=== PATIENT | male | born 1985 | race Caucasian/White ===

== ENCOUNTER 2018-11-23 09:05 | Emergency (ER) | payer OTHER ==
--- NOTE | 2018-11-23 09:32 | EDM.PDOC ---
ED HPI GENERAL MEDICAL PROBLEM - General Chief Complaint: Laceration Stated Complaint: SHARD OF STEEL THREW LEG Time Seen by Provider: 11/23/18 09:20 - History of Present Illness INITIAL COMMENTS - FREE TEXT/NARRATIVE: HISTORY AND PHYSICAL: History of present illness: The patient is a healthy 33-year-old male who presents from work after he was hitting a piece of metal and a shard of that metal came off and went through his left Leg causing a laceration. The patient says he was in good health with no systemic complaints prior to these events and is up-to-date on his tetanus shot. He says that there was no crush injury or blunt force injury but that a piece of metal came off and went through his pain leg. He says he cannot find a shard of metal and he is concerned that it is retained in his leg. He has no pain at the leg other than at the surface laceration. He has no numbness or tingling in his leg and no other injuries. Review of systems: As per history of present illness and below otherwise all systems reviewed and negative. Past medical history: As per history of present illness and as reviewed below otherwise noncontributory. Surgical history: As per history of present illness and as reviewed below otherwise noncontributory. Social history: No reported history of drug or alcohol abuse. Family history: As per history of present illness and as reviewed below otherwise noncontributory. Physical exam: General: Well-developed well-nourished man who is nontoxic and vital signs are noted by me. Patient ambulated into the ED without distress HEENT: Atraumatic, normocephalic, negative for conjunctival pallor or scleral icterus, mucous membranes moist, throat clear, neck supple, nontender, trachea midline. Lungs: Clear to auscultation, breath sounds equal bilaterally, chest nontender. Heart: S1S2, regular rate and rhythm no overt murmurs Abdomen: Soft, nondistended, nontender. NABS Pelvis: Stable nontender. Genitourinary: Deferred. Rectal: Deferred. Extremities: Atraumatic with full range of motion of all extremities with the exception of the left soft tissue lower extremity where there is a 3 cm laceration which appears to go to the subcutaneous tissue and has minimal oozing. There is no bruising of the soft tissue in this region and no soft tissue swelling and only mild tenderness. Laceration is 3 cm in length. I do not appreciate any foreign body on visual or palpation and inspection. The patient leg has only a very small tear seen. The legs are, negative for cords or calf pain. Neurovascular unremarkable. Neuro: Awake, alert, oriented. Cranial nerves II through XII unremarkable. Cerebellum unremarkable. Motor and sensory unremarkable throughout. Exam nonfocal. Diagnostics: X-ray left leg Therapeutics: Local wound care with irrigation and cleansing, lidocaine with epinephrine, Keflex, bacitracin After x-ray was reviewed and the foreign object was seen outside of the soft tissues behind the knee I had the patient remove his slacks and we were able to find a shard of metal. He is reassured. Procedure note: After the wound was irrigated by nursing was explored and no foreign bodies were appreciated. 1% lidocaine with epinephrine was infused locally fashion. The skin edges were reapproximated using #2Sutures of 3-0 nylon and for simple erinn. The sutures were simple interrupted The patient tolerated the procedure well and there were no complications. Bacitracin and a dressing were applied. Impression: Left leg laceration Definitive disposition and diagnosis as appropriate pending reevaluation and review of above. - Related Data Allergies Allergy/AdvReac Type Severity Reaction Status Date / Time No Known Allergies Allergy Verified 11/23/18 09:20 Home Meds: Home Meds Cephalexin [Keflex] 500 mg PO Q6HR #28 capsule 11/23/18 [Rx] Past Medical History - Past Health History Medical/Surgical History: Denies Medical/Surgical History - Past Surgical History Musculoskeletal Surgical History: Reports: Other (See Below) Other Musculoskeletal Surgeries/Procedures:: jaw surgery Social & Family History - Family History Family Medical History: Noncontributory - Tobacco Use Smoking Status *Q: Former Smoker Used Tobacco, but Quit: Yes Month/Year Tobacco Last Used: 2016 - Recreational Drug Use Recreational Drug Use: No ED ROS GENERAL - Review of Systems Review Of Systems: ROS reveals no pertinent complaints other than HPI. ED EXAM, SKIN/RASH Exam: See Below (See dictation) Course - Vital Signs Last Recorded V/S: Last Vital Signs Temp 36.3 C 11/23/18 09:17 Pulse 77 11/23/18 09:17 Resp 18 11/23/18 09:17 BP 158/96 H 11/23/18 09:17 Pulse Ox 98 11/23/18 09:17 - Orders/Labs/Meds Meds: Medications Discontinued Medications Generic Name Dose Route Start Last Admin Trade Name Estephania PRN Reason Stop Dose Admin Cephalexin 500 mg 11/23/18 09:33 11/23/18 10:15 Keflex PO 11/23/18 09:34 500 mg ONETIME ONE Administration Lidocaine/Epinephrine 20 ml 11/23/18 09:33 11/23/18 10:13 Xylocaine 1% With Epinephrine 1:100,000 INJECT 11/23/18 09:34 20 ml ONETIME ONE Administration Departure - Departure Time of Disposition: 10:44 Disposition: Home, Self-Care 01 Condition: Good Clinical Impression: Leg laceration Qualifiers: Encounter type: initial encounter Laterality: left Qualified Code(s): S81.812A - Laceration without foreign body, left lower leg, initial encounter - Discharge Information Prescriptions: Cephalexin [Keflex] 500 mg PO Q6HR #28 capsule Instructions: Laceration Care, Adult, [id number] Referrals: PCP,None [Primary Care Provider] - Forms: ED Department Discharge Additional Instructions: The following information is given to patients seen in the emergency department who are being discharged to home. This information is to outline your options for follow-up care. We provide all patients seen in our emergency department with a follow-up referral. The need for follow-up, as well as the timing and circumstances, are variable depending upon the specifics of your emergency department visit. If you don't have a primary care physician on staff, we will provide you with a referral. We always advise you to contact your personal physician following an emergency department visit to inform them of the circumstance of the visit and for follow-up with them and/or the need for any referrals to a consulting specialist. The emergency department will also refer you to a specialist when appropriate. This referral assures that you have the opportunity for followup care with a specialist. All of these measure are taken in an effort to provide you with optimal care, which includes your followup. Under all circumstances we always encourage you to contact your private physician who remains a resource for coordinating your care. When calling for followup care, please make the office aware that this follow-up is from your recent emergency room visit. If for any reason you are refused follow-up, please contact the [facility] emergency department at and ask to speak to the emergency department charge nurse. [facility] Primary care- Internal Medicine and Family [address] [address] Keep area clean and dry and do not wash the next 24 hours. Then cleanse with mild soap and water pat dry and apply bacitracin or Neosporin. Please keep open to air as much as possible and only cover with a breathable dressing and do not use Band-Aids. Please have sutures and erinn removed here in the ED in 10 days. Return to ER as needed and as discussed. Please use antibiotics as directed.
[2018-11-23] MEDS ORDERED: Lidocaine 1% with EPINEPHrine 1:100,000 20 ML MDV INJECT ONE (09:33)
[2018-11-23] MEDS ORDERED: Cephalexin 500 MG Cap PO ONE (09:33)
--- NOTE | 2018-11-23 10:02 | CR ---
Indication: Rule out foreign body in like, laceration by shard of steel. Technique: Two views of the left lower leg were obtained. Comparison: None Findings: No radiopaque foreign body is identified at the site of laceration. Radiopacity is identified posterior to the knee. This does not appear to be within the soft tissues, but potentially within the overlying clothing. No fracture subluxation is seen. Impression: No radiopaque foreign body identified. Dictated by Zhanna Porter MD @ Nov 23 2018 10:00AM Signed by Dr. Zhanna Porter @ Nov 23 2018 10:01AM
[2018-11-23] MEDS ORDERED: Bacitracin Oint 1 GM U/D Packet TOP ONE (10:44)
== END 2018-11-23 10:53 | disposition home or self-care (01) ==
LOC: MW.ED 09:05
DX: S81.812A Laceration without foreign body, left lower leg, initial encounter (principal); Z87.891 Personal history of nicotine dependence; W22.8XXA Striking against or struck by other objects, initial encounter
CPT/HCPCS: 12002; 73590; 99283; A9270

== ENCOUNTER 2018-12-04 07:41 | Emergency (ER) | payer OTHER | END 2018-12-04 08:08 | disposition home or self-care (01) | LOC: MW.ED 07:41 | DX: Z53.21 Procedure and treatment not carried out due to patient leaving prior to being seen by health care provider (principal) ==